=== PATIENT | female | born 1980 | race Caucasian/White ===

== ENCOUNTER 2024-07-06 19:25 | Inpatient (IN) | payer OTHER ==
[~2024-07-06] VITALS: Ht 152.4 cm; Wt 102.1 kg
[~2024-07-06 19:25] MED LIST: AMOX1TAB16 PO
[2024-07-06 20:17] LABS: BASOPHILS # (AUTO) 0.1 K/uL (0.0-0.2); BASOPHILS % (AUTO) 0.9 % (0.0-2.0); EOSINOPHILS # (AUTO) 0.4 K/uL (0.0-0.7); EOSINOPHILS % (AUTO) 6.9 % (0.0-6.0); HEMATOCRIT 25 % (33-45); HEMOGLOBIN 7.8 g/dL (11.5-14.8); LYMPHOCYTES # (AUTO) 1.1 K/uL (0.8-4.8); LYMPHOCYTES % (AUTO) 18.1 % (20.0-44.0); MEAN CORPUSCULAR HEMOGLOBIN 27 PG (26.0-33.0); MEAN CORPUSCULAR HGB CONC 31 g/dl (31.0-36.0); MEAN CORPUSCULAR VOLUME 87 fL (82-100); MONOCYTES # (AUTO) 0.9 K/uL (0.1-1.30); MONOCYTES % (AUTO) 13.7 % (2.0-12.0); NEUTROPHILS # (AUTO) 3.8 K/uL (1.8-8.9); NEUTROPHILS % (AUTO) 60.4 % (43.0-81.0); PLATELET COUNT (AUTO) 185 K/uL (150-450); RED BLOOD CELL COUNT(AUTO) 2.94 MIL/uL (4.0-5.2); RED CELL DISTRIBUTION WIDTH 28.7 % (11.5-15.0); WHITE BLOOD COUNT (AUTO) 6.2 K/uL (4.3-11.0)
[2024-07-06 20:20] LABS: APPEARANCE,URINE CLEAR (CLEAR); BILIRUBIN,URINE NEGATIVE (NEGATIVE); BLOOD, URINE NEGATIVE Ery/uL (NEGATIVE); COLOR,URINE YELLOW (YELLOW); KETONES,URINE NEGATIVE (NEGATIVE); LEUKOCYTE ESTERASE ,URINE NEGATIVE (NEGATIVE); NITRITE, URINE NEGATIVE (NEGATIVE); PROTEIN,URINE 1+ mg/dl (NEGATIVE); UGLUCOSE 3+ mg/dL (NEGATIVE)
[2024-07-06 20:23] LABS: ADD URINE CULTURE NO; BACTERIA,URINE None seen /HPF (None Seen); RBC,URINE 0-2 /HPF (0-2); WBC,URINE 0-2 /HPF (0-3)
[2024-07-06 20:31] LABS: CALCIUM, SERUM 8.2 mg/dL (8.5-10.1); CREATININE 0.9 mg/dL (0.6-1.3); POTASSIUM 5.3 mmol/L (3.5-5.1)
[2024-07-06 20:37] LABS: ALBUMIN 3.2 g/dL (3.4-5.0); BILIRUBIN,DIRECT 0.3 mg/dL (0.0-0.2); BILIRUBIN,TOTAL 0.6 mg/dL (0.2-1.0); TOTAL PROTEIN, SERUM 7.5 g/dL (6.4-8.2)
[2024-07-06 21:09] LABS: ABG BASE EXCESS 10.3 mmol/L (-2.0-3.0); ABG PCO2 90.6 mmHg (32.0-45.0); ABG PH 7.258 (7.350-7.450); ABG PO2 82.7 mmHg (83.0-108.0); COHb 1.3 % (0.5-1.5); MetHb 0.3 % (0.0-1.5); O2Hb 92.5 % (94.0-97.0); SITE, ABG LEFT RADIAL
[2024-07-06] MEDS ORDERED: IPRATROPIUM NEB FS 0.5 MG/2.5 ML AMPUL.NEB ONE (22:01)
[2024-07-06] MEDS ORDERED: ALBUTEROL FS 2.5 MG/3 ML VIAL.NEB ONE (22:01)
[2024-07-06] MEDS ORDERED: hydrOXYzine 10 MG TABLET ONE (22:32)
[2024-07-06] MEDS: IPRATROPIUM NEB FS 0.5 MG/2.5 ML AMPUL.NEB NEB ONE (22:35)
[2024-07-06] MEDS: ALBUTEROL FS 2.5 MG/3 ML VIAL.NEB NEB ONE (22:35)
[2024-07-06] MEDS: hydrOXYzine PAMOATE 25 MG CAPSULE PO ONE (22:37)
[2024-07-06] MEDS: hydrOXYzine HCL SYRUP 10 MG/5 ML UDC PO ONE (22:40)
[2024-07-06] MEDS: hydrOXYzine 10 MG TABLET PO ONE (22:46)
[2024-07-06 22:53] LABS: ANISOCYTOSIS 2+; EOSINOPHILS % (MANUAL) 4 % (0-4); HYPOCHROMASIA 1+; LYMPHOCYTES % (MANUAL) 16 % (16-48); MONOCYTES % (MANUAL) 7 % (0-11.0); NEUTROPHILS % (MANUAL) 73 (42-76); PLATELET ESTIMATE ADEQUATE
[2024-07-06 22:54] LABS: STOMATOCYTES 1+
[2024-07-06] MEDS ORDERED: Z GUARD REMEDY 4 OZ OINT TP PRN (23:00)
[2024-07-06] MEDS ORDERED: ONDANSETRON HCL/PF 4 MG/2 ML VIAL IVP PRN (23:00)
[2024-07-06] MEDS ORDERED: MAG HYDROX/AL HYDROX/SIMETH 30 ML UDC PO PRN (23:00)
[2024-07-06] MEDS ORDERED: ZOLPIDEM TARTRATE 5 MG TABLET PO PRN (23:00)
[2024-07-06] MEDS ORDERED: HYDROCODONE/APAP 5/325MG TABLET PO PRN (23:00)
[2024-07-06 23:46] LABS: ABG BASE EXCESS 9.8 mmol/L (-2.0-3.0); ABG OXYGEN SATURATION 91.4 % (94.0-98.0); ABG PCO2 79.4 mmHg (32.0-45.0); ABG PH 7.298 (7.350-7.450); ABG PO2 67.8 mmHg (83.0-108.0); ABG TOTAL HEMOGLOBIN 8.7 G/dL (12.0-16.0); MetHb 0.3 % (0.0-1.5); O2Hb 90.2 % (94.0-97.0); SITE, ABG LEFT RADIAL
[2024-07-07] VITALS (27 sets, daily range): BP systolic 99–130; BP diastolic 51–91; TEMP 95–98.2; O2SAT 69–100
[2024-07-07] MEDS ORDERED: TRAZ-257 PO (00:29)
[2024-07-07] MEDS ORDERED: OMEP40CA21 PO (00:29)
[2024-07-07] MEDS ORDERED: GABA-532 PO (00:29)
[2024-07-07] MEDS ORDERED: LURA40TA PO (00:29)
[2024-07-07] MEDS ORDERED: METO25TA4 PO (00:29)
[2024-07-07] MEDS ORDERED: ASPI-1169 PO (00:29)
[2024-07-07] MEDS ORDERED: NICO-627 TP (00:29)
[2024-07-07] MEDS ORDERED: ALBU90AE INH (00:29)
[2024-07-07] MEDS ORDERED: METO5TAB2 PO (00:29)
[2024-07-07] MEDS ORDERED: HYDR-3895 PO (00:29)
[2024-07-07] MEDS ORDERED: DAPA10TA PO (00:29)
[2024-07-07 02:36] LABS: ABG BASE EXCESS 11.7 mmol/L (-2.0-3.0); ABG PCO2 94.9 mmHg (32.0-45.0); ABG PH 7.256 (7.350-7.450); ABG PO2 37.8 mmHg (83.0-108.0); ABG TOTAL HEMOGLOBIN 9.1 G/dL (12.0-16.0); COHb 1.8 % (0.5-1.5); MetHb 0.3 % (0.0-1.5); O2Hb 60.7 % (94.0-97.0); SITE, ABG RIGHT RADIAL
[2024-07-07] MEDS: ENOXAPARIN SODIUM 40 MG/0.4 ML DISP.SYRIN SQ SCH (03:41)
[2024-07-07 04:24] LABS: BASOPHILS # (AUTO) 0.1 K/uL (0.0-0.2); BASOPHILS % (AUTO) 1.3 % (0.0-2.0); EOSINOPHILS # (AUTO) 0.5 K/uL (0.0-0.7); EOSINOPHILS % (AUTO) 8.5 % (0.0-6.0); HEMATOCRIT 26 % (33-45); HEMOGLOBIN 7.9 g/dL (11.5-14.8); LYMPHOCYTES # (AUTO) 1.1 K/uL (0.8-4.8); LYMPHOCYTES % (AUTO) 21.2 % (20.0-44.0); MEAN CORPUSCULAR HEMOGLOBIN 26 PG (26.0-33.0); MEAN CORPUSCULAR HGB CONC 30 g/dl (31.0-36.0); MEAN CORPUSCULAR VOLUME 86 fL (82-100); MONOCYTES # (AUTO) 0.7 K/uL (0.1-1.30); MONOCYTES % (AUTO) 13.4 % (2.0-12.0); NEUTROPHILS # (AUTO) 2.9 K/uL (1.8-8.9); NEUTROPHILS % (AUTO) 55.6 % (43.0-81.0); PLATELET COUNT (AUTO) 166 K/uL (150-450); RED BLOOD CELL COUNT(AUTO) 3.03 MIL/uL (4.0-5.2); RED CELL DISTRIBUTION WIDTH 28.5 % (11.5-15.0); WHITE BLOOD COUNT (AUTO) 5.3 K/uL (4.3-11.0)
[2024-07-07 04:35] LABS: CALCIUM, SERUM 8.3 mg/dL (8.5-10.1); CREATININE 0.8 mg/dL (0.6-1.3); MAGNESIUM 2.6 mg/dL (1.8-2.4); PHOSPHORUS 3.9 mg/dL (2.5-4.9); POTASSIUM 5.6 mmol/L (3.5-5.1)
[2024-07-07] MEDS ORDERED: ASPI-1420 PO (10:18)
[2024-07-07] MEDS ORDERED: ALBUTEROL FS 2.5 MG/0.5 ML VIAL.NEB NEB PRN (12:30)
[2024-07-07] MEDS: GABAPENTIN 100 MG CAPSULE PO SCH (13:40)
[2024-07-07] MEDS: AMOX/CLAVULANATE 875 MG TABLET PO SCH (16:37)
[2024-07-07] MEDS: TRAZODONE 50 MG TABLET PO SCH (21:05)
[2024-07-07] MEDS: DEXTROSE 50%-WATER 50 ML DISP.SYRIN IVP ONE (21:52)
[2024-07-07] MEDS: INSULIN REGULAR, HUMAN 100 UNIT/ML 10 ML VIAL SQ ONE (21:52)
[2024-07-07] MEDS: ACETAMINOPHEN 325 MG TABLET PO PRN (22:49)
[2024-07-08 06:56] LABS: BASOPHILS # (AUTO) 0.2 K/uL (0.0-0.2); BASOPHILS % (AUTO) 2.9 % (0.0-2.0); EOSINOPHILS # (AUTO) 0.5 K/uL (0.0-0.7); EOSINOPHILS % (AUTO) 8.3 % (0.0-6.0); HEMATOCRIT 28 % (33-45); HEMOGLOBIN 8.2 g/dL (11.5-14.8); LYMPHOCYTES # (AUTO) 0.8 K/uL (0.8-4.8); LYMPHOCYTES % (AUTO) 14.8 % (20.0-44.0); MEAN CORPUSCULAR HEMOGLOBIN 26 PG (26.0-33.0); MEAN CORPUSCULAR HGB CONC 30 g/dl (31.0-36.0); MEAN CORPUSCULAR VOLUME 88 fL (82-100); MONOCYTES # (AUTO) 0.7 K/uL (0.1-1.30); MONOCYTES % (AUTO) 12.3 % (2.0-12.0); NEUTROPHILS # (AUTO) 3.5 K/uL (1.8-8.9); NEUTROPHILS % (AUTO) 61.7 % (43.0-81.0); PLATELET COUNT (AUTO) 154 K/uL (150-450); RED BLOOD CELL COUNT(AUTO) 3.14 MIL/uL (4.0-5.2); RED CELL DISTRIBUTION WIDTH 28.3 % (11.5-15.0); WHITE BLOOD COUNT (AUTO) 5.6 K/uL (4.3-11.0)
[2024-07-08 07:13] LABS: CALCIUM, SERUM 8.8 mg/dL (8.5-10.1); CREATININE 0.7 mg/dL (0.6-1.3); MAGNESIUM 2.8 mg/dL (1.8-2.4); PHOSPHORUS 4.8 mg/dL (2.5-4.9); POTASSIUM 5.9 mmol/L (3.5-5.1)
[2024-07-08 08:00] VITALS: BP 103/66; TEMP 98.6; O2SAT 92
[2024-07-08] MEDS: ASPIRIN EC 81 MG TABLET.DR PO SCH (08:45)
[2024-07-08] MEDS: NICOTINE PATCH (21MG) 21 MG PATCH.TD24 TD SCH (08:45)
[2024-07-08] MEDS: METOPROLOL SUCCINATE 25 MG TAB.SR.24H PO SCH (08:49)
[2024-07-08] MEDS: DAPAGLIFLOZIN PROPANEDIOL 10 MG TABLET PO SCH (09:46)
[2024-07-08 10:57] LABS: ABG BASE EXCESS 12.3 mmol/L (-2.0-3.0); ABG OXYGEN SATURATION 95.8 % (94.0-98.0); ABG PCO2 89.3 mmHg (32.0-45.0); ABG PH 7.281 (7.350-7.450); ABG PO2 88.2 mmHg (83.0-108.0); ABG TOTAL HEMOGLOBIN 8.6 G/dL (12.0-16.0); COHb 1.7 % (0.5-1.5); MetHb 0.2 % (0.0-1.5); SITE, ABG RIGHT RADIAL
[2024-07-08 11:00] VITALS: O2SAT 95
[2024-07-08] MEDS: IBUPROFEN 600 MG TABLET PO PRN (15:36)
[2024-07-08] MEDS: DEXTROSE 50%-WATER 50 ML DISP.SYRIN IVP ONE (15:52)
[2024-07-08] MEDS: INSULIN REGULAR, HUMAN 100 UNIT/ML 10 ML VIAL IV ONE ×2 (15:54→16:14)
[2024-07-08 16:00] VITALS: BP 112/72; TEMP 98.8; O2SAT 98
[2024-07-08] MEDS ORDERED: INSULIN REGULAR, HUMAN 100 UNIT/ML 10 ML VIAL SQ ONE (16:00)
[2024-07-08 22:07] VITALS: BP 107/71; TEMP 97.7; O2SAT 90
[2024-07-08] MEDS: hydrOXYzine 10 MG TABLET PO PRN (23:26)
[2024-07-09 00:06] VITALS: BP 107/71; TEMP 97.7; O2SAT 90
[2024-07-09 07:45] VITALS: O2SAT 91
[2024-07-09 12:36] LABS: BASOPHILS # (AUTO) 0.1 K/uL (0.0-0.2); BASOPHILS % (AUTO) 1.3 % (0.0-2.0); EOSINOPHILS # (AUTO) 0.6 K/uL (0.0-0.7); EOSINOPHILS % (AUTO) 12.3 % (0.0-6.0); HEMATOCRIT 26 % (33-45); LYMPHOCYTES # (AUTO) 0.9 K/uL (0.8-4.8); LYMPHOCYTES % (AUTO) 19.8 % (20.0-44.0); MEAN CORPUSCULAR HEMOGLOBIN 26 PG (26.0-33.0); MEAN CORPUSCULAR HGB CONC 30 g/dl (31.0-36.0); MEAN CORPUSCULAR VOLUME 87 fL (82-100); MONOCYTES # (AUTO) 0.6 K/uL (0.1-1.30); MONOCYTES % (AUTO) 11.9 % (2.0-12.0); NEUTROPHILS # (AUTO) 2.6 K/uL (1.8-8.9); NEUTROPHILS % (AUTO) 54.7 % (43.0-81.0); PLATELET COUNT (AUTO) 138 K/uL (150-450); RED BLOOD CELL COUNT(AUTO) 3.01 MIL/uL (4.0-5.2); RED CELL DISTRIBUTION WIDTH 28.5 % (11.5-15.0); WHITE BLOOD COUNT (AUTO) 4.7 K/uL (4.3-11.0)
[2024-07-09 12:38] LABS: CALCIUM, SERUM 8.2 mg/dL (8.5-10.1); CREATININE 0.6 mg/dL (0.6-1.3); POTASSIUM 5.6 mmol/L (3.5-5.1)
[2024-07-09] MEDS: risperiDONE 1 MG TABLET PO SCH (13:08)
[2024-07-09 16:00] VITALS: BP 106/57; TEMP 98.3; O2SAT 95
[2024-07-09] MEDS: LORAZEPAM 0.5 MG TABLET PO PRN (17:28)
[2024-07-09] MEDS ORDERED: LORAZEPAM 0.5 MG TABLET PO PRN (18:00)
[2024-07-09 20:00] VITALS: BP 107/65; TEMP 99.3
[2024-07-09 21:05] LABS: ABG BASE EXCESS 12.6 mmol/L (-2.0-3.0); ABG OXYGEN SATURATION 88.2 % (94.0-98.0); ABG PCO2 91.8 mmHg (32.0-45.0); ABG PH 7.274 (7.350-7.450); ABG PO2 62.9 mmHg (83.0-108.0); ABG TOTAL HEMOGLOBIN 8.6 G/dL (12.0-16.0); COHb 1.4 % (0.5-1.5); MetHb 0.2 % (0.0-1.5); O2Hb 86.8 % (94.0-97.0); SITE, ABG RIGHT RADIAL
[2024-07-09] MEDS: TRAZODONE 50 MG TABLET PO SCH (22:00)
[2024-07-10 07:00] VITALS: BP 146/77; TEMP 97.7; O2SAT 100
[2024-07-10 08:00] VITALS: BP 115/73; TEMP 98.6; O2SAT 96
[2024-07-10 08:18] LABS: ABG BASE EXCESS 13.2 mmol/L (-2.0-3.0); ABG OXYGEN SATURATION 90.4 % (94.0-98.0); ABG PCO2 89.9 mmHg (32.0-45.0); ABG PH 7.289 (7.350-7.450); ABG PO2 69.7 mmHg (83.0-108.0); ABG TOTAL HEMOGLOBIN 8.8 G/dL (12.0-16.0); COHb 1.5 % (0.5-1.5); MetHb 0.3 % (0.0-1.5); O2Hb 88.8 % (94.0-97.0); SITE, ABG LEFT RADIAL
[2024-07-10 12:34] LABS: CALCIUM, SERUM 8.3 mg/dL (8.5-10.1); CREATININE 0.6 mg/dL (0.6-1.3); POTASSIUM 5.8 mmol/L (3.5-5.1)
[2024-07-10 12:35] LABS: PREGNANCY TEST URINE QUAL NEGATIVE (NEGATIVE)
[2024-07-10] MEDS: LACTULOSE 10 G/15 ML UDC (PYXIS) PO PRN (14:30)
[2024-07-10] MEDS: SORBITOL SOLUTION 70% 30 ML SOLUTION PO ONE (14:30)
[2024-07-10] MEDS: SODIUM POLYSTYRENE SULFONATE 15 G/60 ML BOTTLE PO ONE (14:30)
[2024-07-10 16:00] VITALS: BP 121/74; TEMP 98.8; O2SAT 93
[2024-07-10] MEDS: QUETIAPINE FUMARATE 25 MG TABLET PO SCH ×2 (17:03→21:41)
[2024-07-10 20:00] VITALS: BP 122/61; TEMP 98.6; O2SAT 93
[2024-07-11 07:00] VITALS: BP 98/68; TEMP 97.7; O2SAT 98
[2024-07-11 09:13] LABS: ABG BASE EXCESS 14.7 mmol/L (-2.0-3.0); ABG OXYGEN SATURATION 83.9 % (94.0-98.0); ABG PCO2 94.4 mmHg (32.0-45.0); ABG PH 7.287 (7.350-7.450); ABG PO2 53.5 mmHg (83.0-108.0); ABG TOTAL HEMOGLOBIN 9.2 G/dL (12.0-16.0); COHb 1.5 % (0.5-1.5); MetHb 0.3 % (0.0-1.5); O2Hb 82.4 % (94.0-97.0); SITE, ABG LEFT RADIAL
[2024-07-11 10:49] LABS: BASOPHILS # (AUTO) 0.1 K/uL (0.0-0.2); BASOPHILS % (AUTO) 1.3 % (0.0-2.0); EOSINOPHILS # (AUTO) 0.6 K/uL (0.0-0.7); EOSINOPHILS % (AUTO) 13.5 % (0.0-6.0); HEMATOCRIT 27 % (33-45); HEMOGLOBIN 8.2 g/dL (11.5-14.8); LYMPHOCYTES # (AUTO) 0.9 K/uL (0.8-4.8); LYMPHOCYTES % (AUTO) 22.1 % (20.0-44.0); MEAN CORPUSCULAR HEMOGLOBIN 27 PG (26.0-33.0); MEAN CORPUSCULAR HGB CONC 30 g/dl (31.0-36.0); MEAN CORPUSCULAR VOLUME 88 fL (82-100); MONOCYTES # (AUTO) 0.6 K/uL (0.1-1.30); NEUTROPHILS # (AUTO) 2.1 K/uL (1.8-8.9); NEUTROPHILS % (AUTO) 49.1 % (43.0-81.0); PLATELET COUNT (AUTO) 131 K/uL (150-450); RED BLOOD CELL COUNT(AUTO) 3.08 MIL/uL (4.0-5.2); RED CELL DISTRIBUTION WIDTH 28.2 % (11.5-15.0); WHITE BLOOD COUNT (AUTO) 4.2 K/uL (4.3-11.0)
[2024-07-11 11:03] LABS: CALCIUM, SERUM 8.1 mg/dL (8.5-10.1); CREATININE 0.6 mg/dL (0.6-1.3); MAGNESIUM 2.3 mg/dL (1.8-2.4); PHOSPHORUS 4.2 mg/dL (2.5-4.9); POTASSIUM 4.9 mmol/L (3.5-5.1)
[2024-07-11 16:00] VITALS: BP 114/70; TEMP 97.9; O2SAT 95
[2024-07-11 20:00] VITALS: BP 106/62; TEMP 98.2; O2SAT 92
[2024-07-12 07:02] LABS: CALCIUM, SERUM 8.2 mg/dL (8.5-10.1); CREATININE 0.6 mg/dL (0.6-1.3); POTASSIUM 5.4 mmol/L (3.5-5.1)
[2024-07-12 08:30] VITALS: BP 111/58; TEMP 99.1; O2SAT 94
[2024-07-12] MEDS: SODIUM POLYSTYRENE SULFONATE 15 G/60 ML BOTTLE PO ONE (10:57)
[2024-07-12 16:00] VITALS: BP 110/67; TEMP 99; O2SAT 94
[2024-07-13 06:44] LABS: CALCIUM, SERUM 7.4 mg/dL (8.5-10.1); CREATININE 0.6 mg/dL (0.6-1.3); POTASSIUM 4.8 mmol/L (3.5-5.1)
[2024-07-13 07:30] VITALS: BP 115/71; TEMP 98.1; O2SAT 98
[2024-07-13 07:46] LABS: ABG BASE EXCESS 14.1 mmol/L (-2.0-3.0); ABG OXYGEN SATURATION 91.7 % (94.0-98.0); ABG PCO2 95.3 mmHg (32.0-45.0); ABG PH 7.277 (7.350-7.450); ABG PO2 71.2 mmHg (83.0-108.0); ABG TOTAL HEMOGLOBIN 9.1 G/dL (12.0-16.0); COHb 1.4 % (0.5-1.5); MetHb 0.2 % (0.0-1.5); O2Hb 90.2 % (94.0-97.0); SITE, ABG LEFT RADIAL
[2024-07-13] MEDS ORDERED: TRAZ-252 PO (10:37)
[2024-07-13] MEDS ORDERED: HYDR-3642 PO (10:37)
[2024-07-13] MEDS ORDERED: Quetiapine Fumarate PO ×2 (10:37)
[2024-07-13] MEDS ORDERED: RISP1TAB7 PO (10:37)
[2024-07-13 16:13] VITALS: BP 115/68; TEMP 97.9; O2SAT 97
[2024-07-13 20:15] VITALS: BP 110/65; TEMP 97.9; O2SAT 96
== END 2024-07-13 20:50 | disposition home health service (06) | DRG 421 ==
LOC: ER 19:27 → ICU 23:02 → MED 07-07 20:12 → ICU 07-08 11:19 → MED 07-08 11:22
PROVIDERS: ADMIT Nurse Practitioner Acute Care; ATTEND Nurse Practitioner Acute Care
PROC: 5A09457 Assistance with Respiratory Ventilation, 24-96 Consecutive Hours, Continuous Positive Airway Pressure (ICD-10-PCS; principal; 2024-07-06)
PROC: 5A09357 Assistance with Respiratory Ventilation, Less than 24 Consecutive Hours, Continuous Positive Airway Pressure (ICD-10-PCS; 2024-07-13)
DX: E66.2 Morbid (severe) obesity with alveolar hypoventilation (principal); J96.21 Acute and chronic respiratory failure with hypoxia; D68.59 Other primary thrombophilia; E44.1 Mild protein-calorie malnutrition; E87.20 Acidosis, unspecified; E88.09 Other disorders of plasma-protein metabolism, not elsewhere classified; K70.9 Alcoholic liver disease, unspecified; Z99.81 Dependence on supplemental oxygen; E87.5 Hyperkalemia; Z68.41 Body mass index [BMI] 40.0-44.9, adult; M25.562 Pain in left knee; M25.561 Pain in right knee; W18.30XA Fall on same level, unspecified, initial encounter; Y92.9 Unspecified place or not applicable; F41.9 Anxiety disorder, unspecified; Z79.82 Long term (current) use of aspirin; Z79.51 Long term (current) use of inhaled steroids; Z79.899 Other long term (current) drug therapy; Z59.00 Homelessness unspecified; Z91.199 Patient's noncompliance with other medical treatment and regimen due to unspecified reason; Z53.20 Procedure and treatment not carried out because of patient's decision for unspecified reasons; J98.11 Atelectasis; J96.22 Acute and chronic respiratory failure with hypercapnia; D64.9 Anemia, unspecified; J44.9 Chronic obstructive pulmonary disease, unspecified; F25.0 Schizoaffective disorder, bipolar type; F17.200 Nicotine dependence, unspecified, uncomplicated; F15.90 Other stimulant use, unspecified, uncomplicated
CPT/HCPCS: 36415; 36600; 71045-TC; 73564-TC; 80048-TC; 80076-TC; 81001; 82803-TC; 82962-TC; 83735-TC; 83880; 84100-TC; 84703-TC; 85025-TC; 87081-TC; 93307-TC; 93970-TC; 94760-TC; 94761-TC; 94762-TC; 94799-TC; 97110-TC; 97116-TC; 97530-TC; 97535-TC; 99082-TC; G0378; G0480; J1650; J1815; Q0177